=== PATIENT | female | born 1960 | race Caucasian/White ===

== ENCOUNTER → 2020-04-27 15:20 | Outpatient (CLI) | payer BC, SELFPAY ==
--- NOTE | ~2020-04-27 | MM_ITS ---
EXAMINATION: MM screening steven BI w sumeet HISTORY: Screening mammogram TECHNIQUE: Craniocaudal and mediolateral oblique 3-D tomosynthesis images were obtained and synthetic 2-D images were generated. Bilateral rotated lateral cc views. CAD analysis was submitted and interp reted. COMPARISON: 08/31/2014 bilateral digital screening mammogram BREAST PARENCHYMAL COMPOSITION: There are scattered areas of fibroglandular density. FINDINGS: History of bilateral breast reduction surgery. There is stable fibroglandular asymmetry. Th ere are scattered bilateral benign calcifications. There is no evidence of suspicious mass, calcifica tion, or architectural distortion to suggest malignancy in either breast. There has been no suspiciou s interval change. IMPRESSION: 1. No mammographic evidence of malignancy. 2. Recommend routine screening mammography in one year. BI-RADS Category 2: Benign finding(s). Reviewed, dictated and finalized at location A.
== END ==
PROVIDERS: Visit Provider Obstetrics & Gynecology
DX: Z12.31 Encounter for screening mammogram for malignant neoplasm of breast (principal)
CPT/HCPCS: 77063; 77067